=== PATIENT | female | born 1955 | race Caucasian/White ===

== ENCOUNTER 2017-10-04 08:54 | Emergency (ER) | payer OTHER ==
[~2017-10-04] VITALS: Ht 162.6 cm; Wt 63.0 kg
[~2017-10-04 08:54] MED LIST: FLUOXETINE HCL20 M1 PO; LISINOPRIL10 MG PO; METFORMIN HCL500 M2 PO; METOPROLOL TART25 MG PO; NORCO 10-325 T1 EACH PO; TIZANIDINE HCL4 M1 PO
[2017-10-04 09:39] LABS: BILIRUBIN,URINE NEGATIVE (NEGATIVE); KETONES,URINE NEGATIVE (NEGATIVE); LEUKOCYTE ESTERASE ,URINE NEGATIVE (NEGATIVE); NITRITE,URINE NEGATIVE (NEGATIVE); PROTEIN,URINE DIPSTICK NEGATIVE (NEGATIVE); URINE UROBILINOGEN 0.2 mg/dL (0.2 - 1)
[2017-10-04 09:42] LABS: CLARITY,URINE CLEAR (CLEAR); COLOR,URINE YELLOW (YELLOW)
[2017-10-04 09:46] LABS: BACTERIA,URINE FEW /HPF; EPITHELIAL CELLS,URINE MODERATE /LPF; RBC,URINE 0-5 /HPF (0-5); WBC,URINE (MAN) 0-5 /HPF (0-5)
[2017-10-04 09:59] LABS: INFLUENZAE A&B ANTIGEN (RAPID) NEGATIVE (NEGATIVE); STREPTOCOCCUS GRP A ANTIGEN NEGATIVE (NEGATIVE)
--- NOTE | 2017-10-04 10:34 | Diagnostic Imaging Report ---
EXAMINATION: PA and lateral views of the chest. COMPARISON: None CLINICAL HISTORY: Dyspnea, cough and fever DISCUSSION: Lines/tubes: None. Lungs: The lungs are well inflated and clear. No pneumonia or pulmonary edema. Pleura: There is no pleural effusion or pneumothorax. Heart and mediastinum: The cardiomediastinal silhouette is normal. Bones and soft tissues: No acute bony abnormalities. IMPRESSION: No acute cardiopulmonary abnormalities. Signed by: Dr. Garrett Sood M.D. on 10/04/2017 10:31 AM
== END 2017-10-04 11:13 | disposition home or self-care (01) ==
LOC: ER 08:54
DX: R50.9 Fever, unspecified (principal); R05 Cough; J20.8 Acute bronchitis due to other specified organisms
CPT/HCPCS: 71046; 81001; 83518; 87070; 87086; 87400; 99284

== ENCOUNTER 2019-06-11 12:22 | Inpatient (IN) | payer OTHER ==
[~2019-06-11] VITALS: Ht 162.6 cm; Wt 64.4 kg
--- OUTSIDE RECORDS SUMMARY | 2019-06-11 12:24 | XMS REPORT ---
Author Author [facility] Address Unknown Phone Unavailable Care Team Providers Care Burrer Hand Name Role Phone Hai MERIDA Unavailable Unavailable Problems This patient has no known problems. Allergies, Adverse Reactions, Alerts This patient has no known allergies or adverse reactions. Medications This patient has no known medications. Results Test Description Test Time Test Comments Text Results Atomic Results Result Comments CHEST [address] [address] Patient Name: KAHLIL LOERA MR #: [id number] : 1955 Age/Sex: 61/F Req #: [id number] Adm Physician: Ordered by: JOHANNA MERIDA MD Report #: [id number] Location: ER Room/Bed: Procedure: [id number] DX/CHEST 2 VIEWS Exam Date: 10/04/17 Exam Time: 1007 REPORT STATUS: Signed EXAMINATION: PA and lateral views of the chest. COMPARISON: None CLINICAL HISTORY: Dyspnea, cough and fever DISCUSSION: Lines/tubes: None. Lungs: The lungs are well inflated and clear. No pneumonia or pulmonary edema. Pleura: There is no pleural effusion or pneumothorax. Heart and mediastinum: The cardiomediastinal silhouette is normal. Bones and soft tissues: No acute bony abnormalities. IMPRESSION: No acute cardiopulmonary abnormalities. Signed by: Dr. Tej Landeros M.D. on 10/04/2017 10:31 AM Dictated By: TEJ LANDEROS MD [id number] Transcribed By: VANE on 10/04/17 1031 COPY TO: JOHANNA MERIDA MD
[2019-06-11] MEDS ORDERED: PANTOPRAZOLE 40 MG 10ML VIAL IV STA (12:38)
[2019-06-11] MEDS ORDERED: ONDANSETRON HCL INJ 2MG/ML 2ML 2 MG/ML VIAL IV STA (12:38)
[2019-06-11] MEDS ORDERED: SODIUM CHLORIDE 0.9% 1000ML 1,000 ML IV STA (12:38)
[2019-06-11 13:15] LABS: BASOPHILS # (AUTO) 0.1 (0.0-0.1); BASOPHILS % 0.3 % (0.0-1.0); EOSINOPHILS % 0.1 % (0.0-6.0); HEMATOCRIT 44.7 % (34.2-44.1); HEMOGLOBIN 14.9 g/dL (12.0-16.0); LYMPHOCYTES # (AUTO) 2.5 (1.0-3.2); LYMPHOCYTES % 13.3 % (18.0-39.1); MEAN CORPUSCULAR HEMOGLOBIN 30.9 pg (28-32); MEAN CORPUSCULAR HGB CONC 33.3 g/dL (31-35); MEAN CORPUSCULAR VOLUME 92.7 fL (81-99); MONOCYTES # (AUTO) 1.5 (0.2-0.8); NEUTROPHILS # (AUTO) 14.3 (2.1-6.9); NEUTROPHILS % 77.8 % (38.7-80.0); PLATELET COUNT 391 x10e3/uL (140-360); RED BLOOD COUNT 4.82 x10e6/uL (3.6-5.1); RED CELL DISTRIBUTION WIDTH 12.9 % (11.7-14.4)
[2019-06-11 13:26] LABS: INR 0.94; PARTIAL THROMBOPLASTIN TIME 28.2 seconds (23.8-35.5); PROTHROMBIN TIME 13.1 seconds (11.9-14.5)
[2019-06-11] MEDS ORDERED: MORPHINE SULFATE 2 MG/ML SYR 1ML IV STA ×2 (13:58→15:48)
[2019-06-11 14:32] LABS: ALBUMIN 4.3 g/dL (3.5-5.0); ALBUMIN/GLOBULIN RATIO 1.4 (0.8-2.0); ANION GAP 20.6 mmol/L (8-16); CALCIUM 10.2 mg/dL (8.4-10.2); CREATININE, SERUM 1.03 mg/dL (0.57-1.11); POTASSIUM 4.6 mmol/L (3.5-5.1)
[2019-06-11 14:38] LABS: CREATINE KINASE MB 2.5 ng/mL (0-5.0)
[2019-06-11] MEDS ORDERED: PIPER-TAZ 3.375 GM 50 ML IV SCH (16:00)
[2019-06-11] MEDS ORDERED: METRONIDAZOLE 500MG/NS 100ML 100 ML IV SCH (16:00)
--- NOTE | 2019-06-11 16:10 | Diagnostic Imaging Report ---
EXAMINATION: CHEST SINGLE (PORTABLE) INDICATION: Abdominal pain COMPARISON: None FINDINGS: LINES/TUBES:EKG leads overlie the chest. LUNGS:The lungs are well-inflated. No focal consolidation or pulmonary edema. Left basilar subsegmental atelectasis. PLEURA:No pleural effusion or pneumothorax. MEDIASTINUM:The cardiomediastinal silhouette appears normal in size and shape. Atherosclerotic calcifications of the thoracic aorta. BONES/SOFT TISSUES:No acute osseous injury. ABDOMEN:No free air under the diaphragm. IMPRESSION: No focal pneumonia or pulmonary edema. Subsegmental atelectasis at the left lung base. Signed by: Denise Lutz MD on 06/11/2019 4:07 PM
--- NOTE | 2019-06-11 16:19 | Diagnostic Imaging Report ---
EXAM: CT Abdomen and Pelvis WITH intravenous contrast INDICATION: Abdominal pain COMPARISON: None. TECHNIQUE: Abdomen and pelvis were scanned utilizing a multidetector helical scanner from the lung base to the pubic symphysis after administration of IV contrast. Coronal and sagittal reformations were obtained. Routine protocol was performed. Scan was performed during portal venous phase. IV CONTRAST: 100mL of Isovue 370 ORAL CONTRAST: Water RADIATION DOSE: Total DLP: 285.2 mGy*cm Dose modulation, iterative reconstruction, and/or weight based adjustment of the mA/kV was utilized to reduce the radiation dose to as low as reasonably achievable. FINDINGS: LOWER THORAX: No focal consolidation. Anteromedial left lower lobe bulla. Small sliding hiatal hernia. HEPATOBILIARY: Severe diffuse hepatic steatosis. No focal liver lesion. No biliary ductal dilation. Mildly distended gallbladder without CT evidence of cholecystitis. SPLEEN: No splenomegaly. PANCREAS: No focal masses or ductal dilatation. ADRENALS: No adrenal nodules. KIDNEYS/URETERS: 4 mm right mid ureteral calculus. No other urinary calculi. No right or left hydronephrosis or hydroureter. PELVIC ORGANS/BLADDER: Unremarkable. PERITONEUM / RETROPERITONEUM: No free air or fluid. LYMPH NODES: No lymphadenopathy. VESSELS: Diffuse atherosclerotic calcifications of the nonaneurysmal abdominal aorta and major branches. GI TRACT: Extensive sigmoid and descending colon diverticulosis with wall thickness of the sigmoid colon and adjacent mild pericolonic fat stranding. No associated focal fluid collection or free air. BONES AND SOFT TISSUES: No acute osseous injury. No suspicious lytic or blastic lesions. IMPRESSION: Extensive sigmoid and descending colon diverticulosis with wall thickening of the sigmoid colon and adjacent mild pericolonic fat stranding. Findings may represent mild acute diverticulitis. No associated free air or focal fluid collection. 4 mm right mid ureteral calculus. No associated hydronephrosis or hydroureter. Severe diffuse hepatic steatosis. Signed by: Denise Lutz MD on 06/11/2019 4:16 PM
[2019-06-11 16:21] LABS: AMPHETAMINES SCREEN,URINE NEGATIVE (NEGATIVE); BENZODIAZEPINES SCREEN,URINE NEGATIVE (NEGATIVE); PHENCYCLIDINE SCREEN,URINE NEGATIVE (NEGATIVE)
[2019-06-11] MEDS ORDERED: DEXTROSE 50% SYRINGE 50 ML IV PRN (16:30)
[2019-06-11] MEDS: SODIUM CHLORIDE 0.9% 1000ML 1,000 ML IV SCH (17:35)
[2019-06-11] MEDS: INSULIN LISPRO 100 UNIT/1 ML 3ML VIAL SQ SCH (17:44)
[2019-06-11 19:58] LABS: BASOPHILS # (AUTO) 0.1 (0.0-0.1); BASOPHILS % 0.3 % (0.0-1.0); EOSINOPHILS % 0.1 % (0.0-6.0); HEMOGLOBIN 13.4 g/dL (12.0-16.0); LYMPHOCYTES # (AUTO) 2.7 (1.0-3.2); LYMPHOCYTES % 14.6 % (18.0-39.1); MEAN CORPUSCULAR HEMOGLOBIN 30.7 pg (28-32); MEAN CORPUSCULAR HGB CONC 32.7 g/dL (31-35); MEAN CORPUSCULAR VOLUME 93.8 fL (81-99); MONOCYTES # (AUTO) 1.7 (0.2-0.8); NEUTROPHILS # (AUTO) 14.1 (2.1-6.9); NEUTROPHILS % 75.4 % (38.7-80.0); PLATELET COUNT 337 x10e3/uL (140-360); RED BLOOD COUNT 4.37 x10e6/uL (3.6-5.1); RED CELL DISTRIBUTION WIDTH 13.1 % (11.7-14.4)
[2019-06-11] MEDS: PANTOPRAZOLE 40 MG 10ML VIAL IV SCH (20:14)
[2019-06-11 20:40] VITALS: BP 145/78
[2019-06-11 20:48] VITALS: BP 145/78
[2019-06-11] MEDS: TEMAZEPAM 15 MG CAP PO PRN (21:01)
[2019-06-11] MEDS: ONDANSETRON HCL INJ 2MG/ML 2ML 2 MG/ML VIAL IV PRN (21:01)
[2019-06-11] MEDS: MORPHINE SULFATE 2 MG/ML SYR 1ML IV PRN (21:01)
[2019-06-11] MEDS ORDERED: SODIUM CHLORIDE 0.9% 50ML 50 ML ONE (21:55)
[2019-06-11] MEDS ORDERED: IOPAMIDOL 370 MG/ML 200 ML INFUS..BTL INJ ONE (21:55)
[2019-06-11] MEDS: PIPER-TAZ 3.375 GM 50 ML IV SCH (22:00)
[2019-06-11] MEDS: METRONIDAZOLE 500MG/NS 100ML 100 ML IV SCH (22:30)
[2019-06-12] VITALS (8 sets, daily range): BP systolic 93–136; BP diastolic 55–72
[2019-06-12 00:04] LABS: CREATINE KINASE 48 IU/L (29-168)
--- NOTE | 2019-06-12 01:23 | History and Physical ---
CHIEF COMPLAINT: This is a 63-year-old female, who comes in with abdominal pain. HISTORY OF PRESENTING ILLNESS: A 63-year-old female with a history of diverticulitis in the past, was in her usual state of health until 2 days prior to admission. The patient started to have rectal bleeding, increase in abdominal pain, and 10/10 in intensity. The patient came in with rectal bleeding, was found to have diverticulitis, admitted for the same. PAST MEDICAL HISTORY: History of hypertension, history of anxiety, history of depression, history of diabetes mellitus, and history of hyperlipidemia. MEDICATIONS: Medicines she takes at home; fluoxetine 20 mg daily, lisinopril 10 mg daily, metformin 500 mg b.i.d., metoprolol 25 mg twice a day. PAST SURGICAL HISTORY: Includes history of neck surgery, low back surgery, history of hysterectomy, history of tonsillectomy, and cyst removed from the arm secondary to possible cancerous lesion. SOCIAL HISTORY: History of drug abuse in the past and also history of alcoholism in the past. Drinks occasionally. Positive for smoking at this time. REVIEW OF SYSTEMS: Negative for chest pain. Positive for shortness of breath. No nausea or vomiting. Positive for hematochezia and diarrhea. No constipation. Positive for rectal bleeding. No diplopia. No blurry vision. ALLERGIES: NO DRUG ALLERGIES NOTED. PHYSICAL EXAMINATION: GENERAL: The patient is alert and oriented x3. VITAL SIGNS: Temperature is 97.9, pulse of 63, respirations of 18, blood pressure is 102/53 with a pulse oximetry of 95%. HEENT: Normocephalic, atraumatic. Pupils are reactive to light and accommodation. The patient looks older than her age. CVS: S1 and S2 distant. LUNGS: Decreased air entry into all leroy. ABDOMEN: Tender in the left lower quadrant with no rebound and no guarding present. EXTREMITIES: No clubbing, no cyanosis, no edema. LABORATORY STUDIES: White count 18,000, hemoglobin of 14.9, hematocrit of 44.7, and platelet count is 391. Chemistry shows sodium of 134, potassium of 4.6, BUN is 22, creatinine 1.03, glucose is 156. ALT and AST within normal limits at 19 and 21. Troponin was negative. Creatinine was 1.03. Toxicology; opiates were positive, cocaine was positive. Coags; INR 0.94. IMAGING STUDIES: Chest x-ray shows no focal pneumonia. Subsegmental atelectasis of the left lung base. CT of the abdomen and pelvis shows extensive sigmoid and descending colon diverticulosis with wall thickening of the sigmoid colon and adjacent mild pericolonic fat stranding, represents acute diverticulitis, pulmonary right mid ureteral calculus, severe diffuse hepatic steatosis. ASSESSMENT: A 63-year-old female with: 1. Sigmoid diverticulitis. The patient was started on Zosyn and Flagyl. We will continue the same. Consult with Dr. Cole and Dr. Owen will be done. 2. History of substance abuse including cocaine. The patient has been counseled on the same. 3. History of hypertension. We will restart her metoprolol. 4. History of hyperlipidemia and diabetes. Blood sugars have been running in the normal range. We will keep her with a sliding scale low dose, diet modification given. Further recommendation per clinical course. We will continue to monitor the patient. Again, consult with Dr. Owen and Dr. Cole will be done too. MD NENA James/MODL /[id number]
[2019-06-12] MEDS: MORPHINE SULFATE 2 MG/ML SYR 1ML IV PRN ×7 (01:54→23:16)
[2019-06-12] MEDS: ONDANSETRON HCL INJ 2MG/ML 2ML 2 MG/ML VIAL IV PRN ×4 (01:54→23:16)
[2019-06-12 02:17] LABS: BASOPHILS % 0.3 % (0.0-1.0); EOSINOPHILS % 0.1 % (0.0-6.0); HEMATOCRIT 38.5 % (34.2-44.1); HEMOGLOBIN 12.7 g/dL (12.0-16.0); LYMPHOCYTES # (AUTO) 2.2 (1.0-3.2); LYMPHOCYTES % 14.3 % (18.0-39.1); MEAN CORPUSCULAR HEMOGLOBIN 31.3 pg (28-32); MEAN CORPUSCULAR VOLUME 94.8 fL (81-99); MONOCYTES # (AUTO) 1.3 (0.2-0.8); MONOCYTES % 8.6 % (4.4-11.3); NEUTROPHILS # (AUTO) 11.7 (2.1-6.9); NEUTROPHILS % 76.2 % (38.7-80.0); PLATELET COUNT 302 x10e3/uL (140-360); RED BLOOD COUNT 4.06 x10e6/uL (3.6-5.1); RED CELL DISTRIBUTION WIDTH 13.2 % (11.7-14.4)
[2019-06-12] MEDS: PIPER-TAZ 3.375 GM 50 ML IV SCH ×4 (04:00→22:08)
[2019-06-12] MEDS: METRONIDAZOLE 500MG/NS 100ML 100 ML IV SCH ×4 (04:35→22:47)
[2019-06-12] MEDS: SODIUM CHLORIDE 0.9% 1000ML 1,000 ML IV SCH ×3 (05:51→19:10)
[2019-06-12] MEDS: INSULIN LISPRO 100 UNIT/1 ML 3ML VIAL SQ SCH ×5 (06:04→23:37)
--- NOTE | 2019-06-12 06:28 | NUR ---
Spoke to Dr. Mario about routine consult.
--- NOTE | 2019-06-12 06:29 | NUR ---
Paged Dr. Owen about consult.
[2019-06-12 06:46] LABS: BASOPHILS % 0.3 % (0.0-1.0); EOSINOPHILS # (AUTO) 0.1 (0.0-0.4); EOSINOPHILS % 0.5 % (0.0-6.0); HEMATOCRIT 36.7 % (34.2-44.1); HEMOGLOBIN 11.7 g/dL (12.0-16.0); LYMPHOCYTES # (AUTO) 2.5 (1.0-3.2); LYMPHOCYTES % 19.6 % (18.0-39.1); MEAN CORPUSCULAR HEMOGLOBIN 30.8 pg (28-32); MEAN CORPUSCULAR HGB CONC 31.9 g/dL (31-35); MEAN CORPUSCULAR VOLUME 96.6 fL (81-99); MONOCYTES # (AUTO) 0.9 (0.2-0.8); MONOCYTES % 6.6 % (4.4-11.3); NEUTROPHILS # (AUTO) 9.4 (2.1-6.9); NEUTROPHILS % 72.5 % (38.7-80.0); PLATELET COUNT 266 x10e3/uL (140-360); RED CELL DISTRIBUTION WIDTH 13.2 % (11.7-14.4)
--- NOTE | 2019-06-12 06:58 | NUR ---
Spoke to Dr. Owen, no new orders.
--- NOTE | 2019-06-12 07:15 | NUR ---
The pt. is asleep at rounding and exhibits no issues at this time.
[2019-06-12 07:23] LABS: ALANINE AMINOTRANSFERASE 10 IU/L (0-55); ALBUMIN 3.1 g/dL (3.5-5.0); ALBUMIN/GLOBULIN RATIO 1.3 (0.8-2.0); ALKALINE PHOSPHATASE 84 IU/L (40-150); ANION GAP 12.6 mmol/L (8-16); BLOOD UREA NITROGEN 12 mg/dL (7-26); BUN/CREATININE RATIO 18 (6-25); CALCIUM 8.4 mg/dL (8.4-10.2); CARBON DIOXIDE 23 mmol/L (22-29); CHLORIDE 108 mmol/L (98-107); CREATININE, SERUM 0.67 mg/dL (0.57-1.11); EST GLOMERULAR FILTRATION RATE > 60 ML/MIN (60-); GLUCOSE 123 mg/dL (74-118); POTASSIUM 3.6 mmol/L (3.5-5.1); SODIUM 140 mmol/L (136-145)
[2019-06-12 08:19] LABS: CREATINE KINASE MB 1.4 ng/mL (0-5.0)
[2019-06-12 09:05] LABS: CREATINE KINASE 35 IU/L (29-168)
[2019-06-12] MEDS: PANTOPRAZOLE 40 MG 10ML VIAL IV SCH ×2 (09:31→20:45)
--- NOTE | 2019-06-12 10:49 | Progress Note ---
DATE: SUBJECTIVE: The patient admitted to the hospital with acute diverticulitis. The patient is still n.p.o., currently on IV antibiotics, inclusive of Zosyn and metronidazole, feeling better. No more rectal bleeding noted by the patient. The patient had a bowel movement today, but no rectal bleeding noted. No chest pain. No shortness of breath. No nausea, no vomiting, and positive abdominal pain. PHYSICAL EXAMINATION: VITAL SIGNS: Temperature is 98.5, pulse of 83, respirations of 18, blood pressure is 93/56, pulse oximetry of 96% on room air. HEENT: Normocephalic and atraumatic. Pupils are reactive. No icterus present. CVS: S1 and S2 normal, distant. LUNGS: Decreased air entry into all lung leroy. ABDOMEN: Tender in the left lower quadrant better. EXTREMITIES: No clubbing, no cyanosis, and no edema. LABORATORY VALUES: Today's white count is 12,000 down from 18,000, hemoglobin and hematocrit stable at 11.7 and 36.7. Chemistries, sodium 140, potassium of 3.6, BUN and creatinine normal and eGFR above 60. Glucose is 123. CK, CK-MB new sets are pending. ASSESSMENT: A 63-year-old female with acute diverticulitis, sigmoid. PLAN: 1. Continue on Zosyn and Flagyl. Also, consulted Dr. Cole and Dr. Owen, her GI art sales consultant. 2. Hypertension, we will hold back on metoprolol as she has been running hypotensive. She is n.p.o. We will start her on IV metoprolol 2.5 q.6 hours as needed. 3. History of hyperlipidemia and diabetes, sugars have been running normal. We will continue monitoring and diet modification has been recommended. The patient will be advanced to a clear liquid diet, if symptoms are abating and the patient is looking better. Further recommendation per clinical course. We will continue to monitor the patient along with the consultants. MD NENA James/[place] /[id number]
[2019-06-12 11:56] LABS: BASOPHILS % 0.3 % (0.0-1.0); EOSINOPHILS # (AUTO) 0.1 (0.0-0.4); EOSINOPHILS % 0.7 % (0.0-6.0); HEMOGLOBIN 11.7 g/dL (12.0-16.0); LYMPHOCYTES # (AUTO) 2.1 (1.0-3.2); LYMPHOCYTES % 16.2 % (18.0-39.1); MEAN CORPUSCULAR HEMOGLOBIN 30.9 pg (28-32); MEAN CORPUSCULAR HGB CONC 31.6 g/dL (31-35); MEAN CORPUSCULAR VOLUME 97.6 fL (81-99); MONOCYTES # (AUTO) 0.9 (0.2-0.8); MONOCYTES % 6.8 % (4.4-11.3); NEUTROPHILS # (AUTO) 9.9 (2.1-6.9); NEUTROPHILS % 75.5 % (38.7-80.0); PLATELET COUNT 254 x10e3/uL (140-360); RED BLOOD COUNT 3.79 x10e6/uL (3.6-5.1); RED CELL DISTRIBUTION WIDTH 13.2 % (11.7-14.4)
[2019-06-12] MEDS: METOPROLOL TARTRATE INJ 1 MG/ML VIAL IV SCH ×2 (11:56→18:37)
--- NOTE | 2019-06-12 14:00 | NUR ---
The pt's spouse is at the station asking what happened to the pt. going for Egd at 1230 and was advised that the pt. was told that she was told that it was tentative for that time as the drJesus had 8 cases scheduled and they were unsure where she would fall in the schedule. Dr. Marquez is rounding and was made aware that the pt. is concerned that she did not get her venlafaxine and that her antibiotics were not continued "I have a kidney infection that they have been treating". Addendum: 06/12/19 at 1643 by Radha Marion RN This note entered in error to this chart.
--- NOTE | 2019-06-12 15:17 | NUR ---
The pt. reports that her iv hurts and will restart. Addendum: 06/12/19 at 1644 by Radha Marion RN This note entered in error
--- NOTE | 2019-06-12 15:55 | Consultation ---
DATE OF CONSULTATION: 06/12/2019 HISTORY OF PRESENT ILLNESS: This is a 63-year-old, known to me, who has history of diverticulosis, presented to the hospital because of some rectal bleeding, which she describes as bright red blood. She also complains of pain mainly in the left lower quadrant area and suprapubic area. She has some nausea, but denies any vomiting along with this problem. Her workup, she had a CAT scan, which showed extensive sigmoid and descending colon diverticulosis with wall thickening of the sigmoid colon, which represent mild acute diverticulitis, 4 mm mid ureteral calculus and fatty liver. Her white count was high at 18.4 on admission, is down to 12.99 overnight. Her BMP or CMP is normal. PAST MEDICAL HISTORY: Significant for history of hypertension, history of diverticulitis and diverticulosis, history of diabetes. ALLERGIES: NONE. SOCIAL HISTORY: No alcohol use. FAMILY HISTORY: Noncontributory. MEDICATIONS: At this point, her medications include: 1. Zosyn. 2. Flagyl. 3. Pantoprazole. 4. Insulin. REVIEW OF SYSTEMS: Denies any chest pain at this point. Denies any shortness of breath. Denies any dysphagia or odynophagia. No history hematuria or any kind of syncopal episode. PHYSICAL EXAMINATION: GENERAL: Awake, alert, appears to be stable, not in acute distress. VITAL SIGNS: Afebrile, currently with stable vital signs. HEAD, EYES, EARS, NOSE, AND THROAT: Normocephalic, atraumatic. Sclerae are anicteric. NECK: Supple. HEART: Regular. LUNGS: Clear. ABDOMEN: Soft. There is no distention at this point. There is mild tenderness in the left lower quadrant area. There is no rebound or mass. EXTREMITIES: No clubbing. LABORATORY VALUES: As of this morning, WBC of 12.99, hemoglobin 10.7, hematocrit of 36.7. Again, CMP is normal. INR is normal. CAT scan as I mentioned before. IMPRESSION: 1. Gastrointestinal bleed, likely secondary to diverticular bleeding. 2. Acute diverticulitis. 3. History of diabetes. 4. Hypertension. RECOMMENDATIONS: Continue current care at this point with antibiotics. Keep her n.p.o. for now. Follow labs and progress as needed. We will hold off any colonoscopy at this point as she continued to have bleeding. Otherwise, she will need to have colonoscopy as an outpatient in about 6-8 weeks. MD RODRIGO Childs/[place] /[id number] cc: MD Alice James MD
[2019-06-12 16:23] LABS: BASOPHILS % 0.2 % (0.0-1.0); EOSINOPHILS # (AUTO) 0.1 (0.0-0.4); EOSINOPHILS % 0.6 % (0.0-6.0); HEMATOCRIT 35.2 % (34.2-44.1); HEMOGLOBIN 11.4 g/dL (12.0-16.0); LYMPHOCYTES # (AUTO) 2.1 (1.0-3.2); LYMPHOCYTES % 16.6 % (18.0-39.1); MEAN CORPUSCULAR HEMOGLOBIN 30.9 pg (28-32); MEAN CORPUSCULAR HGB CONC 32.4 g/dL (31-35); MEAN CORPUSCULAR VOLUME 95.4 fL (81-99); MONOCYTES # (AUTO) 0.7 (0.2-0.8); MONOCYTES % 5.3 % (4.4-11.3); NEUTROPHILS # (AUTO) 9.8 (2.1-6.9); NEUTROPHILS % 76.8 % (38.7-80.0); PLATELET COUNT 195 x10e3/uL (140-360); RED BLOOD COUNT 3.69 x10e6/uL (3.6-5.1); RED CELL DISTRIBUTION WIDTH 13.1 % (11.7-14.4)
[2019-06-12] MEDS: TEMAZEPAM 15 MG CAP PO PRN (20:45)
--- NOTE | 2019-06-12 22:02 | Consultation ---
DATE OF CONSULTATION: 06/12/2019 Consultation. CHIEF COMPLAINT: Abdominal pain and hematochezia. HISTORY OF PRESENT ILLNESS: The patient is a 63-year-old female with sudden onset of lower abdominal cramping pain with loose stool followed by bleeding per rectum. The patient had a similar episode 2 years ago requiring IV antibiotics for 5 days. She denies nausea or vomiting. PAST MEDICAL HISTORY: Positive hypertension and diabetes. History of diverticulitis. PAST SURGICAL HISTORY: Positive for cervical neck fusion, lumbar laminectomy. ALLERGIES: NO DRUG ALLERGIES. SOCIAL HABITS: The patient smokes a few cigarettes a day and drinks beers occasionally. REVIEW OF SYSTEMS: She denies chest pain or shortness of breath. PHYSICAL EXAMINATION: VITAL SIGNS: The patient is afebrile. Vital signs stable. GENERAL: She is awake, alert, in moderate discomfort. HEENT: Sclerae nonicteric. NECK: Supple. LUNGS: Clear. HEART: Regular rate and rhythm. ABDOMEN: Soft with some distention in the lower abdomen and guarding in the suprapubic region. Minimal rebound tenderness. EXTREMITIES: No cyanosis or edema. LABORATORY DATA: White cell count 12, hemoglobin 11, creatinine is 0.7. Liver function tests unremarkable. CT of the abdomen shows evidence of sigmoid/descending colon wall thickening and colonic fat stranding consistent with acute diverticulitis. ASSESSMENT: Acute sigmoid diverticulitis with diverticular bleeding. Currently stable. PLAN: Continue IV antibiotics and monitor progress. Donny Mario MD DNAddison/MODL /[id number]
[2019-06-13] VITALS (8 sets, daily range): BP systolic 95–139; BP diastolic 57–84
[2019-06-13] MEDS: MORPHINE SULFATE 2 MG/ML SYR 1ML IV PRN ×3 (03:20→11:27)
[2019-06-13] MEDS: ONDANSETRON HCL INJ 2MG/ML 2ML 2 MG/ML VIAL IV PRN ×5 (03:20→19:55)
[2019-06-13] MEDS: PIPER-TAZ 3.375 GM 50 ML IV SCH ×4 (04:11→23:07)
[2019-06-13] MEDS: METRONIDAZOLE 500MG/NS 100ML 100 ML IV SCH ×4 (04:48→22:06)
[2019-06-13] MEDS: METOPROLOL TARTRATE INJ 1 MG/ML VIAL IV SCH ×3 (05:27→12:21)
[2019-06-13] MEDS: INSULIN LISPRO 100 UNIT/1 ML 3ML VIAL SQ SCH ×4 (05:28→20:44)
[2019-06-13 05:37] LABS: BASOPHILS % 0.3 % (0.0-1.0); EOSINOPHILS # (AUTO) 0.2 (0.0-0.4); EOSINOPHILS % 1.8 % (0.0-6.0); HEMATOCRIT 33.8 % (34.2-44.1); HEMOGLOBIN 10.8 g/dL (12.0-16.0); LYMPHOCYTES # (AUTO) 2.3 (1.0-3.2); LYMPHOCYTES % 19.3 % (18.0-39.1); MEAN CORPUSCULAR HEMOGLOBIN 31.1 pg (28-32); MEAN CORPUSCULAR VOLUME 97.4 fL (81-99); MONOCYTES # (AUTO) 0.8 (0.2-0.8); MONOCYTES % 7.2 % (4.4-11.3); NEUTROPHILS # (AUTO) 8.3 (2.1-6.9); PLATELET COUNT 234 x10e3/uL (140-360); RED BLOOD COUNT 3.47 x10e6/uL (3.6-5.1); RED CELL DISTRIBUTION WIDTH 12.7 % (11.7-14.4)
[2019-06-13] MEDS: SODIUM CHLORIDE 0.9% 1000ML 1,000 ML IV SCH ×2 (06:18→17:30)
--- NOTE | 2019-06-13 07:08 | NUR ---
Received patient lying in bed. Respiration even and unlabored without SOB. Call light in reach.
[2019-06-13] MEDS: PANTOPRAZOLE 40 MG 10ML VIAL IV SCH ×2 (07:45→19:55)
--- NOTE | 2019-06-13 10:14 | Progress Note ---
DATE: SUBJECTIVE: This patient is a 63-year-old female, who comes in with diverticulitis of the sigmoid colon. The patient did pass some blood again today. Pain is better. No chest pain. No shortness of breath. Feeling hungry. OBJECTIVE: VITAL SIGNS: Temperature is 97.8, pulse is 96, respirations of 18, blood pressure is 107/59, pulse oximetry of 96%. HEENT: Normocephalic atraumatic. No icterus present. CVS: S1 and S2 normal. Regular rate and rhythm. ABDOMEN: Tender in the left lower quadrant. No rebound present. EXTREMITIES: No clubbing, no cyanosis, no edema. LABORATORY DATA: White count is down to 11,000, hemoglobin of 10.8, hematocrit of 33.8. Left shift still present. Chemistry show glucoses are running in the 90s to 180s. Troponins have been trended to be negative. Toxicology, again, cocaine was positive. ASSESSMENT: A 63-year-old female with, 1. Acute sigmoid diverticulitis. Continue on Zosyn and Flagyl. We will advance the diet to clear liquid. 2. Hypertension. Continue with antihypertensive medications. 3. History of cocaine abuse. The patient has been given more counseling. 4. History of diabetes mellitus. Continue with sliding scale. 5. Further recommendation as per clinical course. PLAN: Plan would be to advance her diet today and continue following up with Dr. Owen and surgical consult has been done too. MD NENA James/MODL /[id number]
[2019-06-13 12:06] LABS: BASOPHILS % 0.3 % (0.0-1.0); EOSINOPHILS # (AUTO) 0.2 (0.0-0.4); EOSINOPHILS % 1.9 % (0.0-6.0); HEMATOCRIT 36.1 % (34.2-44.1); HEMOGLOBIN 11.6 g/dL (12.0-16.0); LYMPHOCYTES % 18.9 % (18.0-39.1); MEAN CORPUSCULAR HEMOGLOBIN 30.5 pg (28-32); MEAN CORPUSCULAR HGB CONC 32.1 g/dL (31-35); MONOCYTES # (AUTO) 0.7 (0.2-0.8); MONOCYTES % 6.2 % (4.4-11.3); NEUTROPHILS # (AUTO) 7.8 (2.1-6.9); NEUTROPHILS % 72.4 % (38.7-80.0); PLATELET COUNT 245 x10e3/uL (140-360); RED CELL DISTRIBUTION WIDTH 12.5 % (11.7-14.4)
[2019-06-13] MEDS: METFORMIN HCL 500 MG TAB CR PO SCH (15:34)
[2019-06-13] MEDS: MORPHINE SULFATE INJ 4 MG/ML INJ 1ML IV PRN ×2 (15:41→19:55)
[2019-06-13] MEDS: METOPROLOL TARTRATE 25 MG TAB PO SCH (16:25)
[2019-06-13] MEDS ORDERED: INSULIN LISPRO 100 UNIT/1 ML 3ML VIAL SQ NR (17:15)
--- NOTE | 2019-06-13 18:57 | NUR ---
Report given to hourly shift. Patient awake, alert .Respiration even and unlabored without SOB. Call light in reach.
[2019-06-13 18:58] LABS: BASOPHILS % 0.4 % (0.0-1.0); EOSINOPHILS # (AUTO) 0.4 (0.0-0.4); HEMATOCRIT 34.4 % (34.2-44.1); HEMOGLOBIN 10.8 g/dL (12.0-16.0); LYMPHOCYTES % 21.5 % (18.0-39.1); MEAN CORPUSCULAR HEMOGLOBIN 30.5 pg (28-32); MEAN CORPUSCULAR HGB CONC 31.4 g/dL (31-35); MEAN CORPUSCULAR VOLUME 97.2 fL (81-99); MONOCYTES # (AUTO) 0.7 (0.2-0.8); MONOCYTES % 7.4 % (4.4-11.3); NEUTROPHILS # (AUTO) 6.3 (2.1-6.9); NEUTROPHILS % 66.4 % (38.7-80.0); PLATELET COUNT 254 x10e3/uL (140-360); RED BLOOD COUNT 3.54 x10e6/uL (3.6-5.1); RED CELL DISTRIBUTION WIDTH 12.4 % (11.7-14.4)
--- NOTE | 2019-06-13 19:33 | NUR ---
Received bedside report from day nurse. Patient resting in bed, no s/s of distress at this time. All safety measures in place. Will continue to monitor.
[2019-06-13] MEDS: TEMAZEPAM 15 MG CAP PO PRN (19:55)
[2019-06-14] VITALS (8 sets, daily range): BP systolic 99–165; BP diastolic 55–72
[2019-06-14] MEDS: ONDANSETRON HCL INJ 2MG/ML 2ML 2 MG/ML VIAL IV PRN ×4 (00:20→22:50)
[2019-06-14] MEDS: MORPHINE SULFATE INJ 4 MG/ML INJ 1ML IV PRN ×6 (00:20→22:50)
--- NOTE | 2019-06-14 00:58 | NUR ---
Patient reports burning sensation in sacrum, buttocks area, saying, "It feels like my skin tore when I wiped it." Skin intact, asymptomatic, no redness or drainage noted. Applied cream and paste, open to air. Mesh panties and perineal pad in place, no diaper. Will continue to monitor.
[2019-06-14] MEDS: METRONIDAZOLE 500MG/NS 100ML 100 ML IV SCH ×4 (03:11→21:14)
[2019-06-14] MEDS: SODIUM CHLORIDE 0.9% 1000ML 1,000 ML IV SCH ×2 (03:11→14:21)
[2019-06-14] MEDS: PIPER-TAZ 3.375 GM 50 ML IV SCH ×4 (04:13→20:56)
[2019-06-14 05:57] LABS: BASOPHILS % 0.5 % (0.0-1.0); EOSINOPHILS # (AUTO) 0.5 (0.0-0.4); EOSINOPHILS % 5.9 % (0.0-6.0); HEMATOCRIT 38.3 % (34.2-44.1); HEMOGLOBIN 12.3 g/dL (12.0-16.0); LYMPHOCYTES # (AUTO) 2.8 (1.0-3.2); MEAN CORPUSCULAR HEMOGLOBIN 30.9 pg (28-32); MEAN CORPUSCULAR HGB CONC 32.1 g/dL (31-35); MEAN CORPUSCULAR VOLUME 96.2 fL (81-99); MONOCYTES # (AUTO) 0.8 (0.2-0.8); NEUTROPHILS # (AUTO) 4.3 (2.1-6.9); NEUTROPHILS % 51.2 % (38.7-80.0); PLATELET COUNT 290 x10e3/uL (140-360); RED BLOOD COUNT 3.98 x10e6/uL (3.6-5.1); RED CELL DISTRIBUTION WIDTH 12.5 % (11.7-14.4)
--- NOTE | 2019-06-14 07:04 | NUR ---
Bedside report given to night nurse. Patient in stable condition, no s/s of distress at this time. All safety measures in place.
[2019-06-14] MEDS: INSULIN LISPRO 100 UNIT/1 ML 3ML VIAL SQ SCH ×4 (08:00→21:01)
--- NOTE | 2019-06-14 09:35 | Progress Note ---
DATE: SUBJECTIVE: The patient is a 63-year-old female, who came in with acute diverticulitis. The patient has progressed well. No more acute diverticular bleed seen. The patient is tolerating a clear liquid diet. No chest pain. No shortness of breath. Pain still continues and the pain is controlled with IV morphine. PHYSICAL EXAMINATION: VITAL SIGNS: Temperature is 97.4, pulse of 95, respirations 16, blood pressure is 107/55, pulse oximetry of 95%. HEENT: Normocephalic, atraumatic. Pupils are reactive to light and accommodation. CVS: S1 and S2 normal. Regular rate and rhythm. ABDOMEN: Has some suprapubic tenderness and also left upper quadrant tenderness, but decreased in intensity. EXTREMITIES: No clubbing, no cyanosis, no edema. LABORATORY DATA: The patient's white count is 8.33 today, hemoglobin of 12.3, hematocrit 38.3. Chemistries; glucose running in the 107s to 149s. MICROBIOLOGY: None done. ASSESSMENT: 1. Acute sigmoid diverticulitis. The plan is to continue on Zosyn and Flagyl. We will advance her diet to a soft mechanical diet. 2. Hypertension. Continue with antihypertensive medication. 3. History of diabetes mellitus. Continue with sliding scale. PLAN: Okay to advance diet and possible discharge tomorrow if able to tolerate diet and p.o. antibiotics. The patient need to follow up with Dr. Owen as an outpatient for later colonoscopy in about 3 months. MD NENA James/MODL /[id number]
[2019-06-14] MEDS: LISINOPRIL 10 MG TAB PO SCH (10:15)
[2019-06-14] MEDS: PANTOPRAZOLE 40 MG 10ML VIAL IV SCH ×2 (10:15→20:01)
[2019-06-14] MEDS: METOPROLOL TARTRATE 25 MG TAB PO SCH ×2 (10:15→17:00)
[2019-06-14] MEDS: METFORMIN HCL 500 MG TAB CR PO SCH ×2 (10:15→17:00)
[2019-06-14] MEDS: FLUOXETINE HCL 20 MG CAP PO SCH (10:15)
--- NOTE | 2019-06-14 11:42 | NUR ---
Paged Dr. Owen to let him know patient is continuing to have diarrhea. Awaiting call back
[2019-06-14 12:39] LABS: BASOPHILS # (AUTO) 0.1 (0.0-0.1); BASOPHILS % 0.6 % (0.0-1.0); EOSINOPHILS # (AUTO) 0.4 (0.0-0.4); EOSINOPHILS % 5.1 % (0.0-6.0); HEMATOCRIT 35.5 % (34.2-44.1); HEMOGLOBIN 11.4 g/dL (12.0-16.0); LYMPHOCYTES # (AUTO) 1.8 (1.0-3.2); LYMPHOCYTES % 21.1 % (18.0-39.1); MEAN CORPUSCULAR HEMOGLOBIN 30.8 pg (28-32); MEAN CORPUSCULAR HGB CONC 32.1 g/dL (31-35); MEAN CORPUSCULAR VOLUME 95.9 fL (81-99); MONOCYTES # (AUTO) 0.8 (0.2-0.8); MONOCYTES % 9.1 % (4.4-11.3); NEUTROPHILS # (AUTO) 5.5 (2.1-6.9); NEUTROPHILS % 63.6 % (38.7-80.0); PLATELET COUNT 294 x10e3/uL (140-360); RED CELL DISTRIBUTION WIDTH 12.6 % (11.7-14.4)
[2019-06-14 18:50] LABS: BASOPHILS % 0.4 % (0.0-1.0); EOSINOPHILS # (AUTO) 0.4 (0.0-0.4); EOSINOPHILS % 5.8 % (0.0-6.0); HEMATOCRIT 34.7 % (34.2-44.1); LYMPHOCYTES # (AUTO) 1.9 (1.0-3.2); LYMPHOCYTES % 25.3 % (18.0-39.1); MEAN CORPUSCULAR HEMOGLOBIN 30.8 pg (28-32); MEAN CORPUSCULAR HGB CONC 31.7 g/dL (31-35); MEAN CORPUSCULAR VOLUME 97.2 fL (81-99); MONOCYTES # (AUTO) 0.7 (0.2-0.8); MONOCYTES % 8.9 % (4.4-11.3); NEUTROPHILS # (AUTO) 4.5 (2.1-6.9); NEUTROPHILS % 59.2 % (38.7-80.0); PLATELET COUNT 290 x10e3/uL (140-360); RED BLOOD COUNT 3.57 x10e6/uL (3.6-5.1); RED CELL DISTRIBUTION WIDTH 12.6 % (11.7-14.4)
[2019-06-14] MEDS: TEMAZEPAM 15 MG CAP PO PRN (20:01)
--- NOTE | 2019-06-14 21:25 | NUR ---
notified Dr Owen that patient has been having diarrhea. No order received
[2019-06-15] VITALS: BP 120/60
[2019-06-15] MEDS: SODIUM CHLORIDE 0.9% 1000ML 1,000 ML IV SCH (01:12)
[2019-06-15] MEDS: ONDANSETRON HCL INJ 2MG/ML 2ML 2 MG/ML VIAL IV PRN (03:45)
[2019-06-15] MEDS: MORPHINE SULFATE INJ 4 MG/ML INJ 1ML IV PRN ×2 (03:45→08:50)
[2019-06-15] MEDS: PIPER-TAZ 3.375 GM 50 ML IV SCH ×2 (03:47→10:00)
[2019-06-15 04:00] VITALS: BP 116/68
[2019-06-15] MEDS: METRONIDAZOLE 500MG/NS 100ML 100 ML IV SCH ×2 (04:30→08:04)
--- NOTE | 2019-06-15 06:46 | NUR ---
new order received from Dr Leiva to discharge patient home
--- NOTE | 2019-06-15 07:03 | Progress Note ---
DATE: SUBJECTIVE: The patient is a 63-year-old female, who came in with acute diverticulitis. The patient is currently feeling better, tolerated diet. Diarrhea is better. No chest pain. No shortness of breath. Negative for hematochezia. The patient has been followed by Dr. Owen. Patient's medications are reviewed. OBJECTIVE: VITAL SIGNS: Temperature is 97.2, pulse of 71, respirations of 18, blood pressure is 116/68, pulse ox of 94% on 2 L of oxygen. HEENT: Normocephalic, atraumatic. Pupils are reactive to light and accommodation. CVS: S1 and S2 normal. Regular rate and rhythm. LUNGS: Decreased air entry into all leroy. ABDOMEN: Nontender, nondistended. EXTREMITIES: No clubbing, no cyanosis and/or no edema. LABORATORY VALUES: The patient's white count was normal. Chemistries within normal limits. Hemoglobin is 11 and hematocrit of 34.7. Toxicology, all negative. ASSESSMENT: 1. Acute sigmoid diverticulitis, better. The patient can be discharged on Cipro and Flagyl and the patient will be given some Bentyl. The patient is to advance her diet very slowly and to eat a very bland diet and soft mechanical. 2. Hypertension. Continue with antihypertensive. 3. History of diabetes mellitus. Continue with sliding scale and also with metformin. PLAN: The patient can be discharged today if okay with Dr. Owen. Further recommendation per clinical course. The patient will need a colonoscopy in about 3 months' time. MD NENA James/[place] /[id number]
[2019-06-15] MEDS: METFORMIN HCL 500 MG TAB CR PO SCH (08:00)
[2019-06-15] MEDS: METOPROLOL TARTRATE 25 MG TAB PO SCH (08:04)
[2019-06-15] MEDS: PANTOPRAZOLE 40 MG 10ML VIAL IV SCH (08:04)
[2019-06-15] MEDS: LISINOPRIL 10 MG TAB PO SCH (08:04)
[2019-06-15] MEDS: FLUOXETINE HCL 20 MG CAP PO SCH (08:04)
[2019-06-15] MEDS: INSULIN LISPRO 100 UNIT/1 ML 3ML VIAL SQ SCH ×2 (08:05→12:14)
[2019-06-15 08:26] VITALS: BP 126/70
[2019-06-15 08:55] VITALS: BP 126/70
--- NOTE | 2019-06-15 08:55 | NUR ---
Patient reported two loose stools after eating breakfast and abdominal pain. Paged Dr. Owen to see if patient can continue with pending discharge. Awaiting call back.
--- NOTE | 2019-06-15 09:23 | NUR ---
Spoke to Dr. Owen about patient c/o having diarrhea after breakfast and pain. Will continue to monitor and reassess patient after lunch. Discharge on hold for now.
[2019-06-15] MEDS ORDERED: DICYCLOMINE HCL 20 MG TAB PO PRN (09:30)
[2019-06-15 12:11] VITALS: BP 116/61
[2019-06-15] MEDS ORDERED: CIPRO500 MG PO ×2 (14:47→15:05)
[2019-06-15] MEDS ORDERED: BENTYL10 MG/1 ML PO (15:06)
[2019-06-15] MEDS ORDERED: FLAGYL250 MG PO (15:07)
== END 2019-06-15 15:43 | disposition home or self-care (01) | DRG 379 ==
LOC: ER 12:22 → ERHOLD 16:21 → MED/SURG2 20:44
PROVIDERS: ADMIT Family Medicine; ATTEND Family Medicine
DX: K57.33 Diverticulitis of large intestine without perforation or abscess with bleeding (principal); I10 Essential (primary) hypertension; E11.9 Type 2 diabetes mellitus without complications; Z85.41 Personal history of malignant neoplasm of cervix uteri; F17.210 Nicotine dependence, cigarettes, uncomplicated; Z83.3 Family history of diabetes mellitus; Z82.49 Family history of ischemic heart disease and other diseases of the circulatory system; E78.5 Hyperlipidemia, unspecified; F10.21 Alcohol dependence, in remission; F14.10 Cocaine abuse, uncomplicated; Z79.84 Long term (current) use of oral hypoglycemic drugs; F41.9 Anxiety disorder, unspecified; F32.9 Major depressive disorder, single episode, unspecified
CPT/HCPCS: 36415; 71045; 74177; 80053; 80307; 82550; 82553; 82948; 83735; 84484; 85025; 85610; 85730; 86850; 86900; 86920; 93005; 99284; J2270; J2405; J2543; J7030; Q9967

== ENCOUNTER 2019-12-08 07:56 | Emergency (ER) | payer OTHER ==
[~2019-12-08] VITALS: Ht 162.6 cm; Wt 64.4 kg
[~2019-12-08 07:56] MED LIST changes: +BENTYL10 MG/1 ML PO; +CIPRO500 MG PO; +FLAGYL250 MG PO
[2019-12-08] MEDS ORDERED: PIPER-TAZ 3.375 GM 50 ML IV STA (08:33)
[2019-12-08] MEDS ORDERED: KETOROLAC TROMETHAMINE 30 MG/ML VIAL IV STA (08:33)
[2019-12-08] MEDS ORDERED: SODIUM CHLORIDE 0.9% 1000ML 1,000 ML IV STA (08:33)
[2019-12-08 08:48] LABS: BASOPHILS # (AUTO) 0.1 (0.0-0.1); BASOPHILS % 0.7 % (0.0-1.0); EOSINOPHILS # (AUTO) 0.2 (0.0-0.4); EOSINOPHILS % 2.1 % (0.0-6.0); HEMATOCRIT 42.8 % (34.2-44.1); HEMOGLOBIN 14.3 g/dL (12.0-16.0); LYMPHOCYTES # (AUTO) 2.8 (1.0-3.2); LYMPHOCYTES % 31.5 % (18.0-39.1); MEAN CORPUSCULAR HGB CONC 33.4 g/dL (31-35); MEAN CORPUSCULAR VOLUME 92.8 fL (81-99); MONOCYTES # (AUTO) 0.9 (0.2-0.8); NEUTROPHILS # (AUTO) 4.9 (2.1-6.9); NEUTROPHILS % 55.4 % (38.7-80.0); PLATELET COUNT 381 x10e3/uL (140-360); RED BLOOD COUNT 4.61 x10e6/uL (3.6-5.1); RED CELL DISTRIBUTION WIDTH 12.5 % (11.7-14.4)
[2019-12-08] MEDS ORDERED: DIATRIZOATE MEGL/DIATRIZOA SOD 30 ML BTL PO ONE (08:56)
[2019-12-08 09:02] LABS: INR 0.84
[2019-12-08 09:03] LABS: PARTIAL THROMBOPLASTIN TIME 29.4 seconds (23.8-35.5)
[2019-12-08 09:11] LABS: ALANINE AMINOTRANSFERASE 21 IU/L (0-55); ALBUMIN 4.3 g/dL (3.5-5.0); ALBUMIN/GLOBULIN RATIO 1.4 (0.8-2.0); ALKALINE PHOSPHATASE 130 IU/L (40-150); ANION GAP 16.1 mmol/L (8-16); BLOOD UREA NITROGEN 8 mg/dL (7-26); BUN/CREATININE RATIO 11 (6-25); CALCIUM 9.1 mg/dL (8.4-10.2); CARBON DIOXIDE 26 mmol/L (22-29); CHLORIDE 99 mmol/L (98-107); CREATININE, SERUM 0.76 mg/dL (0.57-1.11); EST GLOMERULAR FILTRATION RATE > 60 ML/MIN (60-); GLUCOSE 200 mg/dL (74-118); POTASSIUM 4.1 mmol/L (3.5-5.1); SODIUM 137 mmol/L (136-145)
[2019-12-08 09:25] LABS: BILIRUBIN,URINE NEGATIVE (NEGATIVE); CLARITY,URINE CLEAR (CLEAR); COLOR,URINE YELLOW (YELLOW); KETONES,URINE NEGATIVE (NEGATIVE); LEUKOCYTE ESTERASE ,URINE NEGATIVE (NEGATIVE); NITRITE,URINE NEGATIVE (NEGATIVE); PROTEIN,URINE DIPSTICK NEGATIVE (NEGATIVE); URINE UROBILINOGEN 0.2 mg/dL (0.2 - 1)
[2019-12-08 09:36] LABS: AMYLASE 60 U/L (25-125); LIPASE 26 U/L (8-78)
[2019-12-08 10:19] LABS: EPITHELIAL CELLS,URINE FEW /LPF
--- NOTE | 2019-12-08 10:24 | Diagnostic Imaging Report ---
EXAMINATION: CT of the abdomen and pelvis with contrast. TECHNIQUE: Spiral CT images of the abdomen and pelvis were performed from the lung bases to the lesser trochanters after the intravenous administration of 100 cc of Isovue 370. Coronal and sagittal reformatted images were obtained. COMPARISON: CT abdomen and pelvis 06/11/2019 CLINICAL HISTORY:Left lower quadrant abdominal pain DISCUSSION: ABDOMEN/PELVIS: LOWER THORAX:Calcified granuloma within the lateral aspect of the left lung base. Medial left basilar bulla unchanged. HEPATOBILIARY: As before the liver is diffusely hypoattenuating compatible with steatosis. Focal sparing along the gallbladder fossa. Calcified granuloma in segment 8 at the dome. No intra-or extrahepatic biliary ductal dilation. The gallbladder is unremarkable. SPLEEN: No splenomegaly or focal splenic lesion. PANCREAS: No focal masses or ductal dilatation. ADRENALS: No adrenal nodules. KIDNEYS/URETERS: No hydronephrosis or calculi. Previously noted suspected right ureteral calculus is felt to be ovarian in origin. No cystic or solid renal mass lesion. multiple pelvic phleboliths. PELVIC ORGANS/BLADDER: Urinary bladder is unremarkable. Uterus is not identified and has presumably been removed. No adnexal mass. PERITONEUM/RETROPERITONEUM: No ascites or pneumoperitoneum. LYMPH NODES: No pelvic sidewall, retroperitoneal, or mesenteric lymphadenopathy. VESSELS: Atherosclerotic calcification of the abdominal aorta and major branch vessels without aneurysmal dilatation. 3 right renal arteries and a single left renal artery. Retroaortic left renal vein. GI TRACT: There are innumerable diverticula along the descending and sigmoid colon, without gross wall thickening or adjacent inflammatory change. The appendix is normal. Sliding hiatal hernia unchanged. No small bowel dilatation to suggest obstruction. BONES AND SOFT TISSUE: No osseous destructive lesions. Degenerative disc changes and facet arthropathy of the lower lumbar spine. No focal soft tissue abnormalities. IMPRESSION: No acute intra-abdominal or pelvic CT abnormalities. Sigmoid diverticulosis without findings of diverticulitis. Hepatic steatosis. Atherosclerotic vascular disease Signed by: Dr. Donny Esposito M.D. on 12/08/2019 10:21 AM
[2019-12-08] MEDS ORDERED: MAGNESIUM CITR296 ML PO (10:59)
[2019-12-08] MEDS ORDERED: KETOROLAC TROME10 MG PO (10:59)
[2019-12-08] MEDS ORDERED: AUGMENTIN 875-1 EACH PO (10:59)
[2019-12-08] MEDS ORDERED: BENTYL10 MG/1 ML IV (10:59)
[2019-12-08] MEDS ORDERED: IOPAMIDOL 370 MG/ML 200 ML INFUS..BTL INJ ONE (11:38)
[2019-12-08] MEDS ORDERED: SODIUM CHLORIDE 0.9% 50ML 50 ML ONE (11:38)
== END 2019-12-08 11:33 | disposition home or self-care (01) ==
LOC: ER 07:56
DX: R10.31 Right lower quadrant pain (principal); K59.00 Constipation, unspecified; E86.0 Dehydration; K57.90 Diverticulosis of intestine, part unspecified, without perforation or abscess without bleeding; I10 Essential (primary) hypertension; E11.9 Type 2 diabetes mellitus without complications; E78.5 Hyperlipidemia, unspecified; Z85.41 Personal history of malignant neoplasm of cervix uteri
CPT/HCPCS: 36415; 74177; 80053; 81001; 82150; 83690; 85025; 85610; 85730; 93005; 99284; J1885; J2543; J7030; Q9967